=== PATIENT | male | born 1980 | race Caucasian/White ===

== ENCOUNTER 2023-09-01 16:16 | Emergency (ER) | payer BC, SELFPAY ==
--- NOTE | 2023-09-01 16:17 | ED.ABDPAIN ---
HPI - Abdominal Pain General Chief Complaint: Unspecified Stated Complaint: blood and mucus in stool Time Seen by Provider: 09/01/23 16:20 Source: patient and RN notes reviewed Mode of arrival: ambulatory Limitations: no limitations History of Present Illness HPI narrative: Patient is a 43-year-old male who presents to the [facility] with complaints of blood in mucus in his stool for the past week. Patient states that he is experiencing a moderate amount of bright red blood in his stool each time he produces a bowel movement. He states that he has had multiple episodes diarrhea since last Wednesday or Wednesday of last week. Initially, he believes that this was due to poor eating habits. However, the blood in the stool has persisted. Patient also endorses generalized lower abdominal pain that is worse on the right than the left. He denies any vomiting. Denies recent fevers. Related Data Allergies Allergy/AdvReac Type Severity Reaction Status Date / Time No Known Allergies Allergy Mild Unverified 09/01/23 16:26 Review of Systems Review of Systems: CONSTITUTIONAL: Denies fever, chills, or sweats. EYES: Denies visual changes, redness, or discharge. ENT: Denies otalgia and sore throat CARDIOVASCULAR: Denies chest pain, palpitations, or edema. RESPIRATORY: Denies cough or dyspnea. GASTROINTESTINAL: Denies vomiting. Reports diarrhea, blood in stool, abdominal pain. GENITOURINARY: Denies dysuria or hematuria. SKIN: Denies rash or itching. MUSCULOSKELETAL: Denies back pain, joint pain, or myalgia. NEUROLOGIC: Denies headache, numbness, or weakness. Pertinent positives per HPI. PMFSH Comments At the time of my signature, I reviewed and agree with the nursing past medical, surgical, social, and family history. There is no relevant family history pertinent to the patient complaint. Exam Narrative: GENERAL: This is a well-nourished, well-developed patient, in no apparent distress. HEAD: normocephalic, atraumatic. EYES: Sclera clear/white. Vision is grossly intact. EARS: External ears normal. Hearing grossly intact. NOSE: External nose normal with no obvious nasal discharge, nares without redness, no rhinorrhea. THROAT: Mucous membranes moist, posterior pharynx clear. NECK: Neck supple, non-tender without lymphadenopathy, masses or thyromegaly. CARDIOVASCULAR: Regular rate and rhythm without murmurs, gallops, or rubs. RESPIRATORY: Clear to auscultation. Breath sounds equal bilaterally. No wheezes, rales, or rhonchi. GASTROINTESTINAL: Lower abdominal tenderness.. Bowel sounds are active. SKIN: warm, intact with no suspicious lesions or rash, good texture and turgor. NEURO: awake, alert, and oriented to person, place and time. There were no obvious focal neurologic abnormalities. Course Course Level of Care: Express Care Visit Vital Signs Vital signs: Vital Signs Temperature 98.7 F 09/01/23 16:33 Pulse Rate 64 09/01/23 16:33 Respiratory Rate 16 09/01/23 16:33 Blood Pressure 131/74 09/01/23 16:33 Pulse Oximetry 99 09/01/23 16:33 Temperature 98.7 F 09/01/23 16:33 Pulse Rate 64 09/01/23 16:33 Respiratory Rate 16 09/01/23 16:33 Blood Pressure 131/74 09/01/23 16:33 Pulse Oximetry 99 09/01/23 16:33 Reviewed Transfer Transfered to: [place] Transportation: Other (Private vehicle) Transfer rationale: Further evaluation, appropriate testing, an accurate diagnosis of blood in stool. Accepting physician: Dr. Mendez MDM - Abdominal Pain MDM Narrative Medical decision making narrative: Patient was sent to [place] ED for further evaluation, appropriate testing and accurate treatment of blood in stools. Patient was accepted by Dr. Mendez to the ED. Patient was transferred via private vehicle. Differential Diagnosis Differential diagnosis: Likely diverticulitis, gastroenteritis and other (GI Bleed, Colitis) Critical Care Time Critical Care Time Critical Care Time: No D
[2023-09-01 16:33] VITALS: BP 131/74; PULSE 64; RESP 16; TEMP 37.1; O2SAT 99
== END 2023-09-01 16:35 | disposition short-term general hospital (02) ==
PROVIDERS: Emergency Provider Nurse Practitioner; PCP Family Medicine
DX: K92.1 Melena (principal)
CPT/HCPCS: 99202; G0463

== ENCOUNTER 2023-09-01 17:08 | Observation (INO) | payer BC, SELFPAY ==
--- NOTE | ~2023-09-01 | CT_ITS ---
CT abdomen pelvis w con Ordering provider: Ina Mendez MD History: . GI bleed . Comparison: None. Technique: CT abdomen with IV and without oral contrast. Findings: VISUALIZED LOWER CHEST: Normal. UPPER ABDOMINAL ORGANS: Liver: Normal. Gallbladder: Normal. Spleen: Normal. Stomach/duodenum: Normal. Pancreas: Normal. Adrenals: Normal. Kidneys: Normal. VISUALIZED BOWEL AND MESENTERY: Thickening of the wall of the rectum is noted. Clinical evaluation ad vised. Normal appendix. The bowel is otherwise normal. No free air or free fluid. No mesenteric lymph adenopathy. RETROPERITONEUM: Normal aorta . No retroperitoneal lymphadenopathy. MUSCULOSKELETAL: The superficial soft tissues are normal. Normal in the spine. Mild dextroscoliosis. IMPRESSION: No acute abdominal process with no evidence of active bleeding seen in the gastrointestinal bowel loo ps. Slight thickening of the wall of the rectum. Clinical evaluation advised Reviewed, dictated and finalized at location A. IMPRESSION: No acute abdominal process with no evidence of active bleeding seen in the taryn rointestinal bowel loops. Slight thickening of the wall of the rectum. Clinical evaluation advised
[2023-09-01 17:16] VITALS: BP 147/73; PULSE 78; RESP 17; TEMP 37.1; O2SAT 99
--- NOTE | 2023-09-01 17:21 | ED.GIBLEED ---
HPI - GI Bleed General Chief complaint: GI Bleed Stated complaint: blood in stool Time Seen by Provider: 09/01/23 17:10 Source: patient, family () and other ([facility] [facility]N at urgent care) Limitations: no limitations History of Present Illness HPI Narrative: Notified by Urgent Care that patient would be presents to the emergency department. Patient has been having bloody bowel movements for the past 9 days, occasionally bright red blood per rectum, occasionally hematochezia mixed in with stool and occasionally watery or mucousy stool. These will occur intermittently with times of normal soft but formed stools and alternatively occasionally runny stools. He was having left lower quadrant abdominal pain which today has become right lower quadrant abdominal pain. He denies this ever happening previously. He did have a colonoscopy with a wildland fire operations specialist in 2011 for some scant blood streaked stool but states that at that time it was reportedly normal. Last oral intake was 10 30 this morning. He denies any nausea or vomiting although he does on a feeling of fullness. No history of heart failure liver disease. No fevers. Related Data Allergies Allergy/AdvReac Type Severity Reaction Status Date / Time No Known Allergies Allergy Mild Unverified 09/01/23 16:26 [facility] Surgical History Surgical History History of colonoscopy 2011 Social History Social History Living arrangements: with family Additional living arrangements comments: , children Exam Narrative: GENERAL: Well-appearing, well-nourished, and in no acute distress. HEAD: Normocephalic, atraumatic. EYES: Non injected, non icteric ENT: Nares clear, no rhinorrhea or epistaxis. NECK: Supple. CHEST: Speaking in full sentences. No respiratory distress. HEART: Regular rate and rhythm. . ABDOMEN: Soft, nondistended. Mild tenderness to palpation in the right lower quadrant for quadrant without rigidity or guarding. Not peritoneal. Rectal exam performed. Normal rectal tone. No anal fissures. FOBT/guaiac negative. EXTREMITIES: Normal range of motion. No edema. SKIN: Warm, dry, no rash. NEURO: No focal deficits. Alert and oriented x3. PSYCH: Normal mood and affect. Course Vital Signs Vital signs: Vital Signs Temperature 98.8 F 06/05/24 17:16 Pulse Rate 78 09/01/23 17:16 Respiratory Rate 17 09/01/23 17:16 Blood Pressure 147/73 H 09/01/23 17:16 Pulse Oximetry 99 09/01/23 17:16 Oxygen Delivery Room Air 09/01/23 17:16 Temperature 98.8 F 09/01/23 17:16 Pulse Rate 67 09/01/23 19:33 Respiratory Rate 18 09/01/23 19:33 Blood Pressure 123/57 L 09/01/23 19:33 Pulse Oximetry 97 09/01/23 19:33 Oxygen Delivery Room Air 09/01/23 17:16 MDM - GI Bleed MDM Narrative Medical decision making narrative: The patient is a 43 year old who comes to the emergency department with rectal bleeding and hematochezia of 9 days duration. Initially LLQ and today RLQ. In the ED they are initially afebrile and hemodynamically stable without tachycardia or hypotension (in fact, mild hypertension). Based on history and physical, suspect lower GI bleed . My differential diagnosis at this time is diverticulosis versus angiodysplasia versus Meckel's diverticulum. Colon cancer is also possible. Considered ischemic bowel and anal fissure. Diarrhea and hematochezia making IBD/infectious diarrhea a strong consideration. Possibly hemorrhoids. Patient is not anemic. Elliott Score (predicts readmission risk in patients with acute lower GI bleeding) Based on age, sex, previous lower GI bleed admission, CHRISTY findings, HR, SBP, and initial Hgb: 9 points (+1 age, +1 male, +1 HR, +2 SBP, +4 Hgb). Discharge NOT recommended. Patient is discussed with wildland fire operations specialist Dr. Blaise Chapin. Given patient is amenable to admission, recommends [employer]
[2023-09-01 17:25] LABS: Basophils Percent Auto 0.4 % (0.2-1.2); Eosinophils Absolute Auto 0.1 K/mm3 (0-0.3); Eosinophils Percent Auto 1.2 % (0-4.4); Hematocrit 44.1 % (42.0-52.0); Hemoglobin 14.9 g/dL (14.0-18.0); Immature Granulocyte Absolute 0.01 K/mm3 (0.00-0.031); Immature Granulocyte Percent A 0.2 % (0-0.5); Lymphocytes Absolute Auto 1.31 K/mm3 (0.9-3.2); Lymphocytes Percent Auto 25.8 % (18.3-44.2); Mean Corpuscular HGB Conc 33.8 g/dl (32-36); Mean Corpuscular Hemoglobin 29.5 pg (26-34); Mean Corpuscular Volume 87.3 fl (80-100); Mean Platelet Volume 10.7 fl (7.4-10.4); Monocytes Absolute Auto 0.4 K/mm3 (0.1-0.6); Monocytes Percent Auto 7.9 % (2.6-8.5); Neutrophils Absolute Auto 3.3 K/mm3 (1.3-6.7); Neutrophils Percent Auto 64.5 % (45.5-73.1); Platelet Count Result 197 k/mm3 (150-375); Red Blood Count 5.05 M/mm3 (4.6-6.20); Red Cell Distribution Width 12.8 % (11.5-14.5); White Blood Count 5.1 K/mm3 (4.5-10.0)
[2023-09-01 17:36] LABS: Alanine Aminotransferase 18 U/L (6-50); Alkaline Phosphatase 69 U/L (38-126); Anion Gap 9 mmol/L (4-12); Aspartate Amino Transferase 23 U/L (17-59); Bilirubin,Total 0.9 mg/dL (0.2-1.3); Blood Urea Nitrogen 12 mg/dL (9-20); Calcium 9.4 mg/dL (8.4-10.2); Carbon Dioxide 26 mmol/L (22-30); Chloride 107 mmol/L (98-107); Estimated CRCL calculation 91 ml/min; Estimated Glomerular Filt Rate > 60; Glucose 100 mg/dL (65-110); Potassium 3.7 mmol/L (3.4-5.0); Sodium 142 mmol/L (137-145)
[2023-09-01 17:39] LABS: Prothrombin Time 13.8 Seconds (11.1-14.7)
[2023-09-01 17:40] LABS: Partial Thromboplastin Time 30.1 Seconds (22.3-36.8)
[2023-09-01 18:19] LABS: CRP < 0.5 mg/dL (<1.0)
[2023-09-01 18:46] LABS: Erythrocyte Sedimentation Rate 21 mm/hr (0-20)
[2023-09-01 19:33] VITALS: BP 123/57; PULSE 67; RESP 18; O2SAT 97
[2023-09-01] MEDS: MORPHINE SULFATE (*CRX) 4 MG/ML INJ IV PUSH (20:40)
[2023-09-01 22:17] LABS: Hematocrit 41.5 % (42.0-52.0)
[2023-09-01 22:18] VITALS: BP 124/74; PULSE 78; RESP 19; O2SAT 97
--- NOTE | 2023-09-01 22:49 | ADMGEN ---
This patient, Macho Marinelli, was admitted to 2 Medical Room 255-. Patient/family oriented to hospital policies and general routines including ID bracelet, bed and alarms, visiting hours, pain management, procedures, bathroom and other care routines, personal items, smoking policy, room service/diet, and visiting hours. Information on how to activate the Rapid Response Team has been discussed. Patient/Family are encouraged to report perceived risks to care and to ask questions if they do not understand what they are told or what they should do.
[2023-09-01 22:50] VITALS: BP 144/84; PULSE 77; RESP 17; TEMP 36.9; O2SAT 99
[2023-09-01] MEDS: LACTATED RINGERS 1,000 ML 125 ML IV CONT (22:56)
[2023-09-01] MEDS: BISACODYL 5 MG TABLET EC 20 MG PO (22:56)
--- NOTE | 2023-09-01 23:50 | PM.IMHP ---
H&P: HPI History of Present Illness Date/Time: 09/01/23 23:50 Chief Complaint: The ER for evaluation with complaints of blood in stools Narrative: Very pleasant gentleman without any significant past medical history came to the ER for evaluation with complaints of bowel movements with intermittent bleeding over the last 9 days. It started as spotting which is intermittent in nature. His stools are also oscillating between normal soft and occasionally watery and mucousy stools. He was having left lower quadrant pain which today became right lower quadrant today. He saw more than usual amount of blood in the stool today, got concerned and his brought him to the ER for evaluation. He gives history of colonoscopy in 2011 for some blood streaks in stools, which turned out to be normal. ER physician spoke with the nursing care attendant who wants to keep him NPO, give Dulcolax and the start MiraLax prep for colonoscopy in a.m. Review of Systems Review of Systems: 14 systems were reviewed with pertinent positives and negatives per HPI. Except as documented in the HPI/progress notes, all other systems were reviewed and are negative. All systems reviewed & are unremarkable except as noted in HPI and below PMFSH Surgical History Surgical History History of colonoscopy 2011 Family History Family History Father Hypercholesteremia Grandparent Cancer Social History Social History Smoking status: Never smoker Alcohol intake: never Substance use: never Substance use type: does not use Do You Feel Safe in your Home?: Yes Lack of Transportation: No Lack of Food: Never True Current Housing: I Have Housing Concerned About Future Housing: No Difficulty Paying Gas/Electric Bills: No Difficulty Paying for Meds: No Currently Unemployed: No Education: Master's Degree or Higher Difficulty w/ Childcare or Family Care: No Living arrangements: with family Additional living arrangements comments: , children Spiritual care concerns: No Meds Home Medications and Allergies Home Medications Medication Instructions Recorded Confirmed Type No Home Medications 09/01/23 09/01/23 History Allergies Allergy/AdvReac Type Severity Reaction Status Date / Time No Known Allergies Allergy Mild Unverified 09/01/23 16:26 Vital Signs Vital Signs - 24 hr 09/01/23 17:16 09/01/23 19:33 09/01/23 22:18 Temperature 37.1 C Pulse Rate 78 67 78 Respiratory Rate 17 18 19 Blood Pressure 147/73 H 123/57 L 124/74 Pulse Oximetry 99 97 97 Oxygen Delivery Room Air 09/01/23 22:50 Temperature 36.9 C Pulse Rate 77 Respiratory Rate 17 Blood Pressure 144/84 H Pulse Oximetry 99 Oxygen Delivery Exam Narrative: PHYSICAL EXAMINATION: Vital signs: Please see the chart General physical exam: Donnie 43 years bed, pleasant and cooperative in exam, appears in no acute distress Head/eyes: Atraumatic, EOMI, PERRLA ENT: Moist mucous membranes, nasal passages clear Neck: Supple, full range of motion, trachea midline CVS: S1 + S2, regular rate and rhythm, no murmurs Respiratory: Bilaterally fair air entry in both lung white, mild B/L crackles, symmetric chest expansion, no distress Abdomen: Soft, + mild lower abdominal tenderness on deep palpation, bowel sounds +ve, no organomegaly Extremities: No clubbing, no cyanosis, no edema, no calf tenderness Musculoskeletal: Moves all, adequate range of motion, no muscle spasms Skin: Warm, dry, no jaundice, no cyanosis Neurological: Awake, alert, oriented x 3, cranial nerves II-XII intact, no focal neurological deficits Psychiatric: Normal mood, Non suicidal H&P: Results Labs Labs: Short CBC 09/01/23 09/01/23 Range/Units 17:20 21:51 WBC 5.1 (4.5-10.0) K/mm3 Hgb 14.9 14.0 (14.0-18.0) g/dL
[2023-09-02] VITALS (9 sets, daily range): BP systolic 87–134; BP diastolic 45–74; PULSE 58–78; RESP 16–20; TEMP 36.4–37; O2SAT 97–99; BMI 26.4
[2023-09-02] MEDS: polyethylene glycoL 3350 238 GM BOTTLE PO (00:33)
[2023-09-02 05:01] LABS: Basophils Percent Auto 0.3 % (0.2-1.2); Eosinophils Absolute Auto 0.1 K/mm3 (0-0.3); Eosinophils Percent Auto 0.9 % (0-4.4); Hematocrit 42.6 % (42.0-52.0); Hemoglobin 14.2 g/dL (14.0-18.0); Immature Granulocyte Absolute 0.02 K/mm3 (0.00-0.031); Immature Granulocyte Percent A 0.3 % (0-0.5); Lymphocytes Absolute Auto 1.55 K/mm3 (0.9-3.2); Lymphocytes Percent Auto 23.4 % (18.3-44.2); Mean Corpuscular HGB Conc 33.3 g/dl (32-36); Mean Corpuscular Hemoglobin 29.3 pg (26-34); Mean Corpuscular Volume 87.8 fl (80-100); Mean Platelet Volume 10.5 fl (7.4-10.4); Monocytes Absolute Auto 0.5 K/mm3 (0.1-0.6); Monocytes Percent Auto 7.3 % (2.6-8.5); Neutrophils Absolute Auto 4.5 K/mm3 (1.3-6.7); Neutrophils Percent Auto 67.8 % (45.5-73.1); Platelet Count Result 176 k/mm3 (150-375); Red Blood Count 4.85 M/mm3 (4.6-6.20); White Blood Count 6.6 K/mm3 (4.5-10.0)
[2023-09-02 05:15] LABS: Anion Gap 6 mmol/L (4-12); Blood Urea Nitrogen 10 mg/dL (9-20); Carbon Dioxide 27 mmol/L (22-30); Chloride 106 mmol/L (98-107); Estimated CRCL calculation 100 ml/min; Estimated Glomerular Filt Rate > 60; Glucose 113 mg/dL (65-110); Magnesium 2.2 mg/dL (1.6-2.3); Phosphorus 3.2 mg/dL (2.5-4.5); Potassium 3.4 mmol/L (3.4-5.0); Sodium 139 mmol/L (137-145)
[2023-09-02] MEDS: LACTATED RINGERS 1,000 ML 125 ML IV CONT (06:59)
--- NOTE | 2023-09-02 07:27 | PM.IMPN ---
Progress Note: A&P Assessment and Plan (1) Abdominal pain, lower: Code(s): R10.30 - Lower abdominal pain, unspecified Status: Acute (2) Blood in stool: Code(s): K92.1 - Melena Status: Acute Plan Place patient under observation status in med surge unit GI consulted by ER physician who recommended keeping patient NPO after midnight Patient given Dulcolax followed by MiraLax prep by GI for bowel cleansing Patient planned to undergo Colonoscopy in a.m. as per Gastroenterology- 09/02/23 Patient started on an IV hydration lactate at 125 cc an hour in the ER Strict input and output monitoring DC patient home after colonoscopy if patient is stable and cleared by Gastroenterology Patient needs close follow-up with tourist [employer] attendant as an outpatient for further management recommendation Repeat labs in a.m. Electrolyte replacement as per protocol. Patient will be monitored very closely on the floor. Time Spent With Patient Time with patient: 25 - 35 minutes Subjective Date/time seen: 09/02/23 07:27 Interval history: Admitted ER for evaluation with complaints of blood in stools. Very pleasant gentleman without any significant past medical history came to the ER for evaluation with complaints of bowel movements with intermittent bleeding over the last 9 days. It started as spotting which is intermittent in nature. His stools are also oscillating between normal soft and occasionally watery and mucous stools. He was having left lower quadrant pain which today became right lower quadrant today. He saw more than usual amount of blood in the stool today, got concerned and his brought him to the ER for evaluation. He gives history of colonoscopy in 2011 for some blood streaks in stools, which turned out to be normal. ER physician spoke with the tourist camp attendant who wants to keep him NPO, give Dulcolax and the start MiraLax prep for colonoscopy in a.m. GI consult this am-colonoscopy today Review of Systems Review of Systems: All systems reviewed & are unremarkable except as noted in HPI and below Cardiovascular: Cardiovascular: Denies chest pain and Denies diaphoresis Respiratory: Respiratory: Denies chest congestion and Denies cough Gastrointestinal: Gastrointestinal: Denies abdominal pain and Denies melena Comments: generalized discomfort Genitourinary: Genitourinary: Denies hematuria Psychiatric: Psychiatric: Denies confusion Exam Narrative: PHYSICAL EXAMINATION: Vital signs: Please see the chart General physical exam: Pleasant 43 years bed, pleasant and cooperative in exam, appears in no acute distress Head/eyes: Atraumatic, EOMI, PERRLA ENT: Moist mucous membranes, nasal passages clear Neck: Supple, full range of motion, trachea midline CVS: S1 + S2, regular rate and rhythm, no murmurs Respiratory: Bilaterally fair air entry in both lung white, mild B/L crackles, symmetric chest expansion, no distress Abdomen: Soft, + mild lower abdominal tenderness on deep palpation, bowel sounds +ve, no organomegaly Extremities: No clubbing, no cyanosis, no edema, no calf tenderness Musculoskeletal: Moves all, adequate range of motion, no muscle spasms Skin: Warm, dry, no jaundice, no cyanosis Neurological: Awake, alert, oriented x 3, cranial nerves II-XII intact, no focal neurological deficits Psychiatric: Normal mood, Non suicidal Const: General: comfortable Objective Data Vital Signs Vital Signs: Vital Signs - 24 hr 09/01/23 17:16 09/01/23 19:33 09/01/23 22:18 Temperature 98.8 F Pulse Rate 78 67 78 Respiratory Rate 17 18 19 Blood Pressure 147/73 H 123/57 L 124/74 Pulse Oximetry 99 97 97 Oxygen Delivery Room Air 09/01/23 22:50 09/02/23 04:51 Temperature 98.4 F 98.6 F Pulse Rate 77 60 Respiratory Rate 17 18 Blood Pressure 144/84 H 134/69 Pulse Oximetry 99 99 Oxygen Delivery Intake/Output Intake/Output: Intake & Output 08/30/23 08/31/23 09/01/23 09/02/23 23
--- NOTE | 2023-09-02 11:14 | PC.NURSE ---
To GI Lab via wheelchair. Familly at bedside. Voiding without difficulty.
--- NOTE | 2023-09-02 11:37 | WPDANESEPPF ---
Anes - Initial Pre Proc Eval Procedure: Operation Date: 09/02/23 12:00 Proposed Procedures p Colonoscopy - Bharat Fisher MD Date/Time: 09/02/23 11:37 Surgeon: Everton Torres MD Pre Op Diagnosis: GI Bleed,Hematochezia,Plan Colonoscopy 09/01 Patient Data Age: 43 Gender: M Height: 1.88 m Weight: 93.3 kg Last Vital Signs Temp 98.2 F 09/02/23 11:25 Pulse 65 09/02/23 11:25 Resp 18 09/02/23 11:25 BP 127/74 09/02/23 11:25 Pulse Ox 99 09/02/23 11:25 O2 Del Method Room Air 09/02/23 11:25 FiO2 21 09/02/23 08:10 Allergies Allergy/AdvReac Type Severity Reaction Status Date / Time No Known Allergies Allergy Mild Unverified 09/01/23 16:26 Home Medications Medication Instructions Recorded Confirmed Type No Home Medications 09/01/23 09/01/23 History Laboratory Tests 09/01/23 09/01/23 09/02/23 17:20 21:51 04:51 WBC 5.1 K/mm3 6.6 K/mm3 (4.5-10.0) (4.5-10.0) RBC 5.05 M/mm3 4.85 M/mm3 (4.6-6.20) (4.6-6.20) Hgb 14.9 g/dL 14.0 g/dL 14.2 g/dL (14.0-18.0) (14.0-18.0) (14.0-18.0) Hct 44.1 % 41.5 L % 42.6 % (42.0-52.0) (42.0-52.0) (42.0-52.0) MCV 87.3 fl 87.8 fl (80-100) (80-100) MCH 29.5 pg 29.3 pg (26-34) (26-34) MCHC 33.8 g/dl 33.3 g/dl (32-36) (32-36) RDW 12.8 % 13.0 % (11.5-14.5) (11.5-14.5) Plt Count 197 k/mm3 176 k/mm3 (150-375) (150-375) MPV 10.7 H fl 10.5 H fl (7.4-10.4) (7.4-10.4) Immature Gran % (Auto) 0.2 % 0.3 % (0-0.5) (0-0.5) Neut % (Auto) 64.5 % 67.8 % (45.5-73.1) (45.5-73.1) Lymph % (Auto) 25.8 % 23.4 % (18.3-44.2) (18.3-44.2) Nash % (Auto) 7.9 % 7.3 % (2.6-8.5) (2.6-8.5) Eos % (Auto) 1.2 % 0.9 % (0-4.4) (0-4.4) Baso % (Auto) 0.4 % 0.3 % (0.2-1.2) (0.2-1.2) Lymph # (Auto) 1.31 K/mm3 1.55 K/mm3 (0.9-3.2) (0.9-3.2) Nash # (Auto) 0.4 K/mm3 0.5 K/mm3 (0.1-0.6) (0.1-0.6) Eos # (Auto) 0.1 K/mm3 0.1 K/mm3 (0-0.3) (0-0.3) Baso # (Auto) 0.0 K/mm3 0.0 K/mm3 (0.0-0.1) (0.0-0.1) Abs Immat Gran (auto) 0.01 K/mm3 0.02 K/mm3 (0.00-0.031) (0.00-0.031) Absolute Neuts (auto) 3.3 K/mm3 4.5 K/mm3 (1.3-6.7) (1.3-6.7) Absolute Nucleated RBC 0.000 K/mm3 0.000 K/mm3 (0.0-0.012) (0.0-0.012) Nucleated RBC % 0.0 % 0.0 % (0.0-0.2) (0.0-0.2) ESR 21 H mm/hr (0-20) PT 13.8 Seconds (11.1-14.7) INR 1.0 APTT 30.1 Seconds (22.3-36.8) Sodium 142 mmol/L 139 mmol/L (137-145) (137-145) Potassium 3.7 mmol/L 3.4 mmol/L (3.4-5.0) (3.4-5.0) Chloride 107 mmol/L 106 mmol/L (98-107) (98-107) Carbon Dioxide 26 mmol/L 27 mmol/L (22-30) (22-30) Anion Gap 9 mmol/L 6 mmol/L (4-12) (4-12) BUN 12 mg/dL 10 mg/dL (9-20) (9-20) Creatinine 1.10 mg/dL 1.00 mg/dL (0.7-1.3) (0.7-1.3) Estim Creat Clear Calc 91 ml/min 100 ml/min Estimated GFR > 60 > 60 (59 - ) (59 - ) Glucose 100 mg/dL 113 H mg/dL (65-110) (65-110) Calcium 9.4 mg/dL 9.0 mg/dL (8.4-10.2) (8.4-10.2) Phosphorus 3.2 mg/dL (2.5-4.5) Magnesium 2.2 mg/dL (1.6-2.3) Total Bilirubin 0.9 mg/dL (0.2-1.3) AST 23 U/L (17-59) ALT 18 U/L (6-50) Alkaline Phosphatase 69 U/L (38-126) C-Reactive Protein < 0.5 mg/dL (<1.0) Total Protein 9.0 H g/dL (6.3-8.2) Albumin 5.0 g/dL (3.5-5.1) Blood Type O Positive Antibody Screen Negative Patient hx anesthesia problems: none Family hx anesthesia problems: none Results Review: All pre-operative results and documents have been reviewed as part of the pre-operative evaluation. [facility] Surgical History Surgical History (Reviewed 09/02/23 @ 01:27 by Everton Rahman
--- NOTE | 2023-09-02 11:47 | WPDGICN ---
Assessment and Plan Assessment and plan (1) Proctitis: Code(s): K62.89 - Other specified diseases of anus and rectum Status: Acute Assessment and Plan: most likely proctitis, could be infectious will do colonoscopy with biopsies more recommendations after scope (2) Blood in stool: Code(s): K92.1 - Melena Status: Acute Assessment and Plan: probably from colitis, colonoscopy now (3) Abdominal pain, lower: Code(s): R10.30 - Lower abdominal pain, unspecified Status: Acute GI Consult Note Consult date/time: 09/02/23 11:47 Reason for consult: rectal bleeding HPI: Macho Marinelli is a 43 year old male with new onset of mucus diarrhea with scant amount of blood about 9 days ago, also some lower abdominal cramping, denies fever or sick contact. Yesterday had more blood in stool and finally came to ER. CBC normal, CT scan showed mild rectal thickening, he had colonoscopy about 10 years ago. Review of Systems Constitutional: Constitutional: Denies headache(s) and Denies weakness Eyes: Eyes: Denies blurry vision ENT: Reports Normal hearing present, Denies headache(s) and Denies neck pain Cardiovascular: Cardiovascular: Denies chest pain and Denies dyspnea Respiratory: Respiratory: Denies dyspnea Gastrointestinal: Gastrointestinal: Reports no additional gastrointestinal complaints Genitourinary: Genitourinary: Denies dysuria Musculoskeletal: Musculoskeletal: Denies neck pain Integumentary/Breasts: Skin/Breast: Denies dry skin Neurologic: Reports Normal hearing present, Denies headache(s) and Denies weakness Psychiatric: Psychiatric: Denies anxiety Endocrine: Endocrine: Denies change in body appearance Hematologic/Lymphatic: Hematologic/Lymphatic: Denies easy bleeding Allergic/Immunologic: Allergic/Immunologic: Denies urticaria PMFSH Past Medical History Medical History (Updated 09/02/23 @ 12:06 by Bharat Fisher MD) Proctitis Surgical History Surgical History History of colonoscopy 2011 Family History Family History Father Hypercholesteremia Grandparent Cancer Social History Social History Smoking status: Never smoker Alcohol intake: never Substance use: never Substance use type: does not use Do You Feel Safe in your Home?: Yes Lack of Transportation: No Lack of Food: Never True Current Housing: I Have Housing Concerned About Future Housing: No Difficulty Paying Gas/Electric Bills: No Difficulty Paying for Meds: No Currently Unemployed: No Education: Master's Degree or Higher Difficulty w/ Childcare or Family Care: No Living arrangements: with family Additional living arrangements comments: , children Spiritual care concerns: No Meds Home Medications and Allergies Home Medications Medication Instructions Recorded Confirmed Type No Home Medications 09/01/23 09/01/23 History Allergies Allergy/AdvReac Type Severity Reaction Status Date / Time No Known Allergies Allergy Mild Unverified 09/01/23 16:26 Vital Signs Vital Signs - 24 hr 09/01/23 17:16 09/01/23 19:33 09/01/23 22:18 Temperature 98.8 F Pulse Rate 78 67 78 Respiratory Rate 17 18 19 Blood Pressure 147/73 H 123/57 L 124/74 Pulse Oximetry 99 97 97 Oxygen Delivery Room Air Fraction of Inspired Oxygen 09/01/23 22:50 09/02/23 04:51 09/02/23 07:50 Temperature 98.4 F 98.6 F Pulse Rate 77 60 Respiratory Rate 17 18 18 Blood Pressure 144/84 H 134/69 Pulse Oximetry 99 99 99 Oxygen Delivery Room Air Fraction of Inspired Oxygen 09/02/23 08:10 09/02/23 11:25 Temperature 98.2 F Pulse Rate 65 Respiratory Rate 18 Blood Pressure 127/74 Pulse Oximetry 98 99 Oxygen Delivery Room Air Room Air Fraction of Inspired Oxygen 21 Exam C
[2023-09-02] MEDS: LACTATED RINGERS 1,000 ML 150 ML IV CONT (12:01)
--- NOTE | 2023-09-02 15:32 | PM.DS ---
DS: Admitting Diagnosis Discharge Date 09/01 after 6 pm Admitting Diagnosis blood in stool DS: Discharge Diagnosis Discharge Diagnosis (1) Abdominal pain, lower: Code(s): R10.30 - Lower abdominal pain, unspecified Status: Acute (2) Blood in stool: Code(s): K92.1 - Melena Status: Acute Plan FINAL DX: Ulcerative proctitis Place patient under observation status in med surge unit GI consulted by ER physician who recommended keeping patient NPO after midnight Patient given Dulcolax followed by MiraLax prep by GI for bowel cleansing Patient planned to undergo Colonoscopy in a.m. as per Gastroenterology- 09/02/23 Patient started on an IV hydration lactate at 125 cc an hour in the ER Strict input and output monitoring DC patient home after colonoscopy if patient is stable and cleared by Gastroenterology Patient needs close follow-up with director of cloud services as an outpatient for further management recommendation DS: Summary Hospital Course Hospital Course: Macho Marinelli is a 43 year old male with new onset of mucus diarrhea with scant amount of blood about 9 days ago, also some lower abdominal cramping, denies fever or sick contact. Yesterday had more blood in stool and finally came to ER. CBC normal, CT scan showed mild rectal thickening, he had colonoscopy about 10 years ago. Status at Discharge Functional status at discharge: independent ambulation Time Spent with Patient Time attestation: Total time spent providing and/or coordinating discharge services: Time spent: Less than 30 minutes Exam Narrative: PHYSICAL EXAMINATION: Vital signs: Please see the chart General physical exam: Pleasant 43 years bed, pleasant and cooperative in exam, appears in no acute distress Head/eyes: Atraumatic, EOMI, PERRLA ENT: Moist mucous membranes, nasal passages clear Neck: Supple, full range of motion, trachea midline CVS: S1 + S2, regular rate and rhythm, no murmurs Respiratory: Bilaterally fair air entry in both lung white, mild B/L crackles, symmetric chest expansion, no distress Abdomen: Soft, + mild lower abdominal tenderness on deep palpation, bowel sounds +ve, no organomegaly Extremities: No clubbing, no cyanosis, no edema, no calf tenderness Musculoskeletal: Moves all, adequate range of motion, no muscle spasms Skin: Warm, dry, no jaundice, no cyanosis Neurological: Awake, alert, oriented x 3, cranial nerves II-XII intact, no focal neurological deficits Psychiatric: Normal mood, Non suicidal Const: General: comfortable; No confusion Orientation/consciousness: No confusion Neuro: General: No confusion DS: Data Data Completed and Pending Pending studies at discharge: Pending at discharge 09/02/23 12:02 Surgical [PTH] Routine Labs on day of discharge: Labs from last 24 hours 09/02/23 09/01/23 09/01/23 04:51 21:51 17:20 WBC 6.6 5.1 RBC 4.85 5.05 Hgb 14.2 14.0 14.9 Hct 42.6 41.5 L 44.1 MCV 87.8 87.3 MCH 29.3 29.5 MCHC 33.3 33.8 RDW 13.0 12.8 Plt Count 176 197 MPV 10.5 H 10.7 H Immature Gran % (Auto) 0.3 0.2 Neut % (Auto) 67.8 64.5 Lymph % (Auto) 23.4 25.8 [place] % (Auto) 7.3 7.9 Eos % (Auto) 0.9 1.2 Baso % (Auto) 0.3 0.4 Lymph # (Auto) 1.55 1.31 [place] # (Auto) 0.5 0.4 Eos # (Auto) 0.1 0.1 Baso # (Auto) 0.0 0.0 Abs Immat Gran (auto) 0.02 0.01 Absolute Neuts (auto) 4.5 3.3 Absolute Nucleated RBC 0.000 0.000 Nucleated RBC % 0.0 0.0 ESR 21 H PT 13.8 INR 1.0 APTT 30.1 Sodium 139 142 Potassium 3.4 3.7 Chloride 106 107 Carbon Dioxide 27 26 Anion Gap 6 9 BUN 10 12 Creatinine 1.00 1.10 Estim Creat Clear Calc 100 91 Estimated GFR > 60 > 60 Glucose 113 H 100 Calcium 9.0 9.4 Phosphorus 3.2 Magnesium 2.2 Total Bilirubin 0.9 AST 23 ALT 18 Alkaline Phosphatase 69 C-Reactive Protein < 0.5 Total Protein 9.0 H Albumin 5.0 Blood Type
== END 2023-09-02 18:40 | disposition home or self-care (01) ==
LOC: ANHED 22:16 → ANH2MED 22:23
PROVIDERS: Internal Medicine Gastroenterology; Admitting Provider Family Medicine; Emergency Provider Student in an Organized Health Care Education/Training Program; PCP Family Medicine; Visit Provider Family Medicine
PROC: 0DJD8ZZ Inspection of Lower Intestinal Tract, Via Natural or Artificial Opening Endoscopic (ICD-10-PCS; CPT 45378; principal; 2023-09-02 12:00)
DX: K51.20 Ulcerative (chronic) proctitis without complications (principal); K64.8 Other hemorrhoids
CPT/HCPCS: 45380; 36415; 74177; 80048; 80053; 83735; 84100; 85014; 85018; 85025; 85610; 85652; 85730; 86140; 86850; 86900; 86901; 88305; 96361; 96374; 99285; A9270; G0378; J2270; J2704; J7120; Q9967

== ENCOUNTER 2024-03-06 12:24 | Outpatient (CLI) | payer BC, SELFPAY ==
[2024-03-06 13:28] LABS: Basophils Percent Auto 0.4 % (0.2-1.2); Eosinophils Absolute Auto 0.1 K/mm3 (0-0.3); Eosinophils Percent Auto 1.8 % (0-4.4); Hematocrit 40.5 % (42.0-52.0); Hemoglobin 13.1 g/dL (14.0-18.0); Immature Granulocyte Absolute 0.01 K/mm3 (0.00-0.031); Immature Granulocyte Percent A 0.2 % (0-0.5); Lymphocytes Absolute Auto 1.38 K/mm3 (0.9-3.2); Mean Corpuscular HGB Conc 32.3 g/dl (32-36); Mean Corpuscular Hemoglobin 28.7 pg (26-34); Mean Corpuscular Volume 88.6 fl (80-100); Mean Platelet Volume 10.9 fl (7.4-10.4); Monocytes Absolute Auto 0.4 K/mm3 (0.1-0.6); Monocytes Percent Auto 8.8 % (2.6-8.5); Neutrophils Absolute Auto 2.6 K/mm3 (1.3-6.7); Neutrophils Percent Auto 57.8 % (45.5-73.1); Platelet Count Result 179 k/mm3 (150-375); Red Blood Count 4.57 M/mm3 (4.6-6.20); Red Cell Distribution Width 12.6 % (11.5-14.5); White Blood Count 4.5 K/mm3 (4.5-10.0)
[2024-03-06 13:48] LABS: Alanine Aminotransferase 25 U/L (6-50); Albumin Level 4.3 g/dL (3.5-5.1); Alkaline Phosphatase 65 U/L (38-126); Anion Gap 6 mmol/L (4-12); Aspartate Amino Transferase 27 U/L (17-59); Bilirubin,Total 0.7 mg/dL (0.2-1.3); Blood Urea Nitrogen 20 mg/dL (9-20); Calcium 8.9 mg/dL (8.4-10.2); Carbon Dioxide 28 mmol/L (22-30); Chloride 107 mmol/L (98-107); Cholesterol 131 mg/dL (0-200); Estimated Glomerular Filt Rate > 60; Glucose 91 mg/dL (65-110); HDL Direct 38 mg/dL; Sodium 141 mmol/L (137-145); Triglycerides 67 mg/dL (<150)
[2024-03-06 13:58] LABS: LDL Cholesterol Direct 63 mg/dL
[2024-03-06 14:19] LABS: Free T4 Free Thyroxine 0.79 ng/dL (0.78-2.19)
[2024-03-08 04:33] LABS: Triiodothyronine T3 Free 3.2 pg/mL (2.3-4.2)
== END 2024-03-06 12:25 | disposition home or self-care (01) ==
LOC: ANHLAB 12:25
PROVIDERS: PCP Family Medicine; Visit Provider Registered Nurse
DX: R53.83 Other fatigue (principal); E78.5 Hyperlipidemia, unspecified
CPT/HCPCS: 36415; 80053; 80061; 84439; 84443; 84481; 85025

== ENCOUNTER 2024-04-01 12:42 | Outpatient (CLI) | payer BC, SELFPAY ==
[2024-04-01 13:10] LABS: Hematocrit 40.2 % (42.0-52.0); Hemoglobin 13.7 g/dL (14.0-18.0); Immature Reticulocyte Fraction 8.4 % (3.0-15.9); Mean Corpuscular HGB Conc 34.1 g/dl (32-36); Mean Corpuscular Hemoglobin 29.2 pg (26-34); Mean Corpuscular Volume 85.7 fl (80-100); Mean Platelet Volume 10.4 fl (7.4-10.4); Platelet Count Result 171 k/mm3 (150-375); Red Blood Count 4.69 M/mm3 (4.6-6.20); Reticulocyte Hemoglobin Conten 32.8 pg (28.2-36.6); Reticulocyte Percent 1.74 % (0.7-4.3); Reticulocytes Absolute 0.08 10^6/uL (0.02-0.10); White Blood Count 4.6 K/mm3 (4.5-10.0)
[2024-04-01 13:23] LABS: Lactate Dehydrogenase 197 U/L (120-246)
[2024-04-01 13:31] LABS: Iron 114 ug/dL (49-181)
[2024-04-01 13:32] LABS: Transferrin 234 mg/dL (206-381)
[2024-04-01 13:40] LABS: Percent Iron Saturation 34 % (20-50); TOTAL IRON BINDING CAPACITY 332 ug/dL (265-497)
[2024-04-01 14:30] LABS: Folic Acid 8.3 ng/mL (2.76->20)
== END 2024-04-01 12:43 | disposition home or self-care (01) ==
LOC: ANHLAB 12:43
PROVIDERS: PCP Family Medicine; Visit Provider Registered Nurse
DX: K92.1 Melena (principal); D64.9 Anemia, unspecified; N52.9 Male erectile dysfunction, unspecified
CPT/HCPCS: 36415; 82607; 82728; 82746; 83540; 83550; 83615; 84402; 84403; 84466; 85027; 85046

== ENCOUNTER 2024-09-27 07:07 | Outpatient (CLI) | payer BC, SELFPAY ==
--- OUTSIDE RECORDS SUMMARY | 2024-09-27 07:12 | XMS_ITS | Clinical Summary ---
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 Gender Identity Not on file Sexual Orientation Not on file Plan of Treatment Health Maintenance Due Date Last Done Comments Hepatitis C Virus (HCV) Screening 1982 Hepatitis B Immunization (1 of 3 - 19+ 3-dose series) 2001 Influenza Immunization (#1) 2023 SARS-COV-2 Immunization ( - 2023-25 season) 2023 07/22/2020, 06/29/2020 Respiratory Syncytial Virus (RSV) Immunization (Adult) (1 - 1-dose 75+ series) 2057 DTaP/Tdap/Td Immunization Discontinued 04/14/2018 TdaP Immunization Completed 04/14/2018 Meningococcal Immunization (ACWY) Aged Out No longer eligible based on patient's age to complete this topic Pneumococcal Immunization Combined Aged Out No longer eligible based on patient's age to complete this topic Rotavirus Immunization Aged Out No lo nger eligible based on patient's age to complete this topic
--- OUTSIDE RECORDS SUMMARY | 2024-09-27 07:12 | XMS_ITS | Clinical Summary ---
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
[2024-09-27 07:43] LABS: Hematocrit 39.9 % (42.0-52.0); Hemoglobin 13.2 g/dL (14.0-18.0); Immature Granulocyte Percent A 0.4 % (0-0.5); Lymphocytes Absolute Auto 1.65 K/mm3 (0.9-3.2); Mean Corpuscular HGB Conc 33.1 g/dl (32-36); Mean Corpuscular Hemoglobin 29.1 pg (26-34); Mean Corpuscular Volume 88.1 fl (80-100); Nucleated Red Blood Cells Absolute Auto 0.000 K/mm3 (0.0-0.012); Nucleated Red Blood Cells Perc 0.0 % (0.0-0.2); Platelet Count Result 182 k/mm3 (150-375); Red Blood Count 4.53 M/mm3 (4.6-6.20); White Blood Count 5.5 K/mm3 (4.5-10.0)
== END 2024-09-27 07:08 | disposition home or self-care (01) ==
LOC: ANHLAB 07:10
PROVIDERS: PCP Family Medicine; Visit Provider Registered Nurse
DX: D64.9 Anemia, unspecified (principal)
CPT/HCPCS: 36415; 85025